=== PATIENT | female | born 1995 | race Caucasian/White ===

== ENCOUNTER 2020-06-16 10:58 | Outpatient (CLI) | payer BC, SELFPAY ==
--- NOTE | ~2020-06-16 | US_ITS ---
EXAMINATION: US abdomen complete EXAM DATE: 06/16/2020 11:24 INDICATION: R10.9 - Unspecified abdominal pain . TECHNIQUE: Multiple grayscale and Doppler images of the complete abdomen were obtained (by a technolo gist who performed the scan) and subsequently reviewed. Comparison is made to prior examination from 03/17/2014. FINDINGS: The abdominal aorta is normal in caliber. Visualized portion IVC is patent. The pancreatic head a nd body are normal in appearance. The pancreatic tail is not visualized. The liver is poorly evaluated, poor acoustic window. Suspect echogenic parenchyma as well, hepatic st eatosis. Portal venous flow was seen in the hepatopedal, normal direction and has normal Doppler wa veform. Common bile duct measures 4 mm, which is normal. The gallbladder wall is normal in thickness, with ex pected amount of distention. No sonographic evidence of pericholecystic fluid. There is cholelithia sis. Technologist performing exam reports patient did not demonstrate sonographic Mancilla's sign. P jojo note that this sign is less reliable in patients who have received pain medication. Right kidney: There is normal contour and echogenicity. It measures 10.4 x 3.6 x 4.2 centimeters. There are no focal renal lesions identified. There is no hydronephrosis. Left kidney: There is normal contour and echogenicity. It measures 9.6 x 4.5 x 5.3 centimeters. Th ere are no focal renal lesions identified. There is no hydronephrosis. The spleen measures 10.6 centimeters and is morphologically normal. IMPRESSION: Hepatic steatosis. Cholelithiasis. Reviewed, dictated and finalized at location A. NCIAL SALES CONSULTANT
== END 2020-06-16 10:59 ==
PROVIDERS: PCP Family Medicine; Visit Provider Family Medicine
DX: R10.9 Unspecified abdominal pain (principal); K76.0 Fatty (change of) liver, not elsewhere classified; K80.20 Calculus of gallbladder without cholecystitis without obstruction
CPT/HCPCS: 76700

== ENCOUNTER 2020-06-24 00:41 | Outpatient (CLI) | payer BC, SELFPAY ==
[2020-06-24 19:17] LABS: SARS-CoV-2 RNA PCR Negative
== END 2020-06-24 00:42 | disposition home or self-care (01) ==
LOC: ANHCOVIDDT 00:41
PROVIDERS: Family Provider Family Medicine; PCP Family Medicine; Visit Provider Surgery
DX: Z01.812 Encounter for preprocedural laboratory examination (principal); Z20.822 Contact with and (suspected) exposure to COVID-19
CPT/HCPCS: C9803; U0003; U0005

== ENCOUNTER 2020-06-24 08:44 | Outpatient (CLI) | payer BC, SELFPAY ==
[2020-06-24 09:28] LABS: Alanine Aminotransferase 26 U/L (4-35); Albumin Level 4.1 g/dL (3.5-5.1); Alkaline Phosphatase 93 U/L (38-126); Amylase 72 U/L (30-110); Aspartate Amino Transferase 28 U/L (14-36); Bilirubin,Total 0.4 mg/dL (0.2-1.3); Lipase 61 U/L (23-300)
== END 2020-06-24 08:45 | disposition home or self-care (01) ==
LOC: ANHSURGERY 08:46
PROVIDERS: Family Provider Family Medicine; PCP Family Medicine; Visit Provider Surgery
DX: Z01.818 Encounter for other preprocedural examination (principal); K80.20 Calculus of gallbladder without cholecystitis without obstruction
CPT/HCPCS: 36415; 80076; 82150; 83690; 86850; 86900; 86901

== ENCOUNTER 2020-06-27 01:36 | Day surgery (SDC) | payer BC, SELFPAY ==
[2020-06-21 16:53] VITALS: BMI 47.9
[2020-06-27] VITALS (10 sets, daily range): BP systolic 112–144; BP diastolic 78–99; PULSE 57–87; RESP 14–20; TEMP 36.4–37.1; O2SAT 96–100
[2020-06-27] MEDS: ACETAMINOPHEN 500 MG TABLET 1000 MG PO ×2 (11:28→11:45)
[2020-06-27] MEDS: LACTATED RINGERS 1,000 ML 30 ML IV CONT ×2 (11:38→15:09)
[2020-06-27] MEDS: KETOROLAC 15 MG/ML VIAL (*BKC) IV PUSH ×2 (11:39→11:45)
--- NOTE | 2020-06-27 11:55 | WPDANESEPPF ---
Anes - Initial Pre Proc Eval Procedure: Operation Date: 06/27/20 13:15 Proposed Procedures p Laparoscopic Cholecystectomy, Possible Open - Allen Rivera DO Date/Time: 06/27/20 11:55 Surgeon: Allen Rivera DO Pre Op Diagnosis: Symptomatic cholelithiasis Patient Data Age: 25 Gender: F Height: 5 ft 7 in Weight: 138.8 kg Allergies Allergy/AdvReac Type Severity Reaction Status Date / Time No Known Allergies Allergy Mild Verified 06/21/20 09:29 Home Medications Medication Instructions Recorded Confirmed Type omeprazole 10 mg capsule,delayed 10 mg PO DAILY 06/17/20 06/23/20 History release Patient hx anesthesia problems: none Family hx anesthesia problems: none PMFSH Past Medical History Medical History Asthma Headache, migraine History of PCOS Surgical History Surgical History Hx of tonsillectomy Family History Family History Father Alcoholism Liver disease Mother Hypertension Sibling Asthma Heart disease Clotting disorder Grandparent Diabetes mellitus Other Family history of alcoholism Family history of cardiovascular disease Social History Social History Smoking status: Never smoker Second hand tobacco smoke exposure: Yes Alcohol intake: never Substance use: never Substance use type: does not use Living arrangements: with family 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 Gender identity (if verbalized by the patient): Female Spiritual care concerns: No Agree to blood products: Yes Anes - Eval Final PreProcedure Day of Procedure 06/27/20 11:55 Patient weight: morbidly obese Heart: regular rate and rhythm Lungs: clear to auscultation Airway: Mallampati scale class II Neurological: alert and oriented Last oral intake: >/= 8 hours ASA classification: III Emergent: no Anesthetic plan: proceed Anesthesia type and monitoring: general ETT and standard monitoring Informed Consent: The patient's anesthetic plan and its attendant risks and benefits were discussed with the patient/family/POA. Questions were solicited and answers provided to the satisfaction of the patient/family/POA.
[2020-06-27] MEDS: SCOPOLAMINE 1.5 MG PATCH TRANSDERM (12:32)
--- NOTE | 2020-06-27 12:33 | WPDHPUPDATE1 ---
History and Physical Update Update Date/Time: 06/27/20 12:33 History and Physical has been reviewed, including an updated exam of the patient. There are NO changes in the patient's condition. Risks, benefits, and alternatives have been discussed and questions answered. Patient agrees to proceed with procedure.
[2020-06-27] MEDS: HEPARIN SODIUM 5,000 UNITS/ML VIAL 5000 UNITS SUB-Q (13:02)
[2020-06-27] MEDS: ceFAZolin 3 GM/D5W 100 ML 100 ML IVPB (13:05)
[2020-06-27] MEDS: BUPIVACAINE HCL 0.5% PF 30 ML VIAL INFILTRATE (13:32)
[2020-06-27] MEDS: fentaNYL CITRATE INJ (*CRX) 100 MCG/2 ML VIAL 25 MCG IV PUSH ×6 (14:05→15:06)
--- NOTE | 2020-06-27 14:06 | PM.PROC ---
Procedure Note - Detailed Date of procedure: 06/27/20 Pre-op diagnosis: Symptomatic cholelithiasis Post-op diagnosis: same Procedure performed: Laparoscopic Cholecystectomy Description of procedure: Procedure as well as risks, benefits, and alternatives were discussed with patient. Written consent was obtained and placed in chart prior to procedure. The patient was brought back to surgical suite. Patient was placed in supine position on operating table. Time-out was done to confirm patient and procedure. Patient was then intubated by the anesthesia department. Abdomen was prepped and draped in sterile fashion using chlorhexidine prep. 0.5% bupivacaine with epinephrine was infiltrated at each site of incision. A 5 millimeter incision was made near the umbilicus, and a 5 millimeter Optiview trocar was advanced through the abdominal layers under direct visualization. Once inside the abdominal cavity, carbon dioxide was insufflated to create a pneumoperitoneum. The camera was inserted and the abdomen was inspected. No immediate abnormalities were identified. The patient was placed in reverse Trendelenburg position and rotated slightly to the left. An 11 millimeter incision was made in the subxiphoid region, and an 11 millimeter trocar was inserted under direct visualization. Two 5 millimeter incisions were made in the right upper quadrant, and two 5 millimeter trocars were inserted under direct visualization. The gallbladder was identified and grasped at the fundus and retracted superiorly. It was then grasped at the infundibulum retracted laterally. Careful dissection around the neck of the gallbladder was performed using blunt dissection with a [place] grasper and hook electrocautery. The cystic duct was identified, and a window was created behind it. The cystic artery was also identified and a window was created behind it. The critical view of safety was identified, visualizing the cystic duct running directly into the neck of the gallbladder, and the cystic artery running directly into the wall of the gallbladder. A 5 millimeter clip diploma medical assistant was then used to place 2 clips proximally and 1 clip distally on both the cystic duct and cystic artery. They were then both transected using endoscopic scissors. Once safely away from the suzanne hepatitis, the gallbladder was dissected free from the liver bed using hook electrocautery. Hemostasis was achieved along the way. The gallbladder was removed completely and then removed through the subxiphoid port. The liver bed was then inspected. Hemostasis appeared adequate, and our clips appeared secure. The area was gently irrigated with sterile saline. No other abnormalities were seen. The patient was flattened out in bed, and 1 final inspection was made around the abdominal cavity. The subxiphoid port was removed, and a Kali Yvette cone was used to approximate the fascia with an 0-Vicryl simple interrupted suture. The remaining ports were then removed under direct visualization, the camera was removed, and the pneumoperitoneum was released. The skin of the incisions was approximated using 4-0 Monocryl subcuticular sutures. Exofin glue was applied on top. The patient was then awakened from anesthesia, extubated, and transferred to recovery. Anesthesia: GETA and local (0.5% bupivicaine with epi) Surgeon: Allen Rivera DO Estimated blood loss (mL): 10 Drains: No Packing: No Pathology: yes Complications: No immediate complications Condition: stable (Patient tolerated procedure well, and is currently resting comfortably in recovery.) Disposition: same day Findings: This is a 25-year-old woman who presented right upper quadrant abdominal pain for the past month. She was seen by her PCP couple weeks ago and gallbladder imaging was ordered. Ultrasound showed evidence of cholelithiasis without acute cholecystitis. Discussions were made with the patient about her treatment options and decision was made t
[2020-06-27] MEDS: ONDANSETRON INJ 4 MG/2 ML VIAL IV PUSH (14:32)
[2020-06-27] MEDS: oxyCODONE HCL (*CRX) 5 MG TAB IR PO (15:43)
== END 2020-06-27 16:40 | disposition home or self-care (01) ==
PROVIDERS: Family Provider Family Medicine; PCP Family Medicine; Visit Provider Surgery
PROC: 0FT44ZZ Resection of Gallbladder, Percutaneous Endoscopic Approach (ICD-10-PCS; CPT 47562; principal; 2020-06-27 13:15)
DX: K80.10 Calculus of gallbladder with chronic cholecystitis without obstruction (principal); E66.01 Morbid (severe) obesity due to excess calories; Z68.42 Body mass index [BMI] 45.0-49.9, adult
CPT/HCPCS: 47562; 88304; A9270; J0690; J1100; J1644; J1885; J2250; J2405; J2704; J2710; J3010; J7030; J7120

== ENCOUNTER 2020-07-18 12:11 | Outpatient (CLI) | payer BC, SELFPAY ==
--- NOTE | ~2020-07-18 | XR_ITS ---
XR chest 2V DATE: 07/18/2020 12:33 INDICATION: Dyspnea, tachycardia TECHNIQUE: PA and lateral views COMPARISON: 03/14/2009 two-view chest FINDINGS: Normal heart size. No hilar or mediastinal enlargement. No pulmonary infiltrate or consolid ation, pleural effusion or pulmonary vascular congestion or pneumothorax. Status post cholecystectomy. IMPRESSION: No active cardiopulmonary disease Reviewed, dictated and finalized at location A. USEMENT RIDE INSPECTOR
[2020-07-18 12:58] LABS: D Dimer 0.48 ug/mL (<0.48)
[2020-07-18 13:00] LABS: Alanine Aminotransferase 27 U/L (4-35); Albumin Level 4.4 g/dL (3.5-5.1); Alkaline Phosphatase 96 U/L (38-126); Anion Gap 6 mmol/L (8-16); Aspartate Amino Transferase 23 U/L (14-36); Bilirubin,Total 0.3 mg/dL (0.2-1.3); Blood Urea Nitrogen 16 mg/dL (7-17); Calcium 9.1 mg/dL (8.4-10.2); Carbon Dioxide 27 mmol/L (22-30); Chloride 106 mmol/L (98-107); Estimated Glomerular Filt Rate > 60; Glucose 91 mg/dL (65-105); Magnesium 1.8 mg/dL (1.6-2.3); Potassium 3.8 mmol/L (3.4-5.0); Sodium 139 mmol/L (137-145)
[2020-07-18 13:29] LABS: Thyroid Stimulating Hormone 0.877 uIU/mL (0.465-4.680)
[2020-07-21 13:38] LABS: Homocysteine 10.6 umol/L (<10.4)
== END 2020-07-18 12:12 | disposition home or self-care (01) ==
PROVIDERS: PCP Family Medicine; Visit Provider Family Medicine
DX: R00.2 Palpitations (principal); R06.00 Dyspnea, unspecified; Z83.2 Family history of diseases of the blood and blood-forming organs and certain disorders involving the immune mechanism
CPT/HCPCS: 36415; 71046; 80053; 83090; 83735; 84443; 85380

== ENCOUNTER 2020-07-25 10:15 | Outpatient (CLI) | payer BC, SELFPAY ==
--- NOTE | 2020-07-27 16:04 | WPDHOLTEREM ---
Holter/Event Monitor Holter/Event Monitor Date of procedure: 07/25/20 Procedure Type: 24 hour Holter monitor Diagnosis: palpitation Indications: young female with palpitations Image/Tracing Quality: good Finding: The patient was monitored for 24 hours. The underlying rhythm was sinus with a minimum heart rate of 58 beats per minute, average heart rate of 89 beats minute and maximum heart rate of 148 beats per minute. She there were 2 PACs and no PVCs. There is no atrial fibrillation, SVT, ventricular tachycardia, heart block or pauses. The patient had 1 symptom that of chest pain at 1344 p.m.. She was in sinus rhythm rate 84 beats per minute. Conclusion: Unremarkable Holter monitor. Patient's symptom of chest pain correlated with normal sinus rhythm.
== END 2020-07-25 10:16 | disposition home or self-care (01) ==
PROVIDERS: PCP Family Medicine; Visit Provider Family Medicine
DX: R00.2 Palpitations (principal)
CPT/HCPCS: 93225; 93226

== ENCOUNTER 2020-07-25 13:45 | Outpatient (CLI) | payer BC, SELFPAY ==
--- NOTE | ~2020-07-25 | US_ITS ---
EXAMINATION: US venous doppler [facility] DATE: 07/25/2020 14:29 INDICATION: Dyspnea. TECHNIQUE: Grayscale ultrasound images without and with compression and Doppler ultrasound images of the bilateral lower extremity veins were obtained. COMPARISON: None. FINDINGS: The visualized portions of right common femoral vein, profunda (deep) femoral vein, femoral vein, pop liteal vein, peroneal veins, posterior tibial veins, and greater saphenous vein outflow are patent. The visualized portions of left common femoral vein, profunda femoral vein, femoral vein, popliteal v ein, posterior tibial veins, and greater saphenous vein outflow are patent. The left peroneal veins a re not well visualized. IMPRESSION: 1. No deep venous thrombosis. Reviewed, dictated and finalized at location A. AIR LAND OFFICER
== END 2020-07-25 13:46 | disposition home or self-care (01) ==
PROVIDERS: PCP Family Medicine; Visit Provider Internal Medicine Cardiovascular Disease
DX: R06.00 Dyspnea, unspecified (principal)
CPT/HCPCS: 93970

== ENCOUNTER 2023-01-20 15:39 | Observation (INO) | payer OTHER, SELFPAY ==
--- NOTE | 2023-01-20 15:44 | ADMGEN ---
This patient, Francine Arndt, was admitted to IMU Room 200-01. Patient/family oriented to hospital policies and general routines including ID bracelet, bed and alarms, visiting hours, pain management, procedures, bathroom and other care routines, personal items, smoking policy, room service/diet, and visiting hours. Information on how to activate the Rapid Response Team has been discussed. Patient/Family are encouraged to report perceived risks to care and to ask questions if they do not understand what they are told or what they should do.
[2023-01-20 16:00] VITALS: BP 120/71; PULSE 72; RESP 16; TEMP 36.7; O2SAT 100; BMI 38.7
--- NOTE | 2023-01-20 16:13 | ECG_ITS ---
Measurements Intervals [place] Rate: 64 P: 14 SC: 131 QRS: 14 QRSD: 101 T: 7 QT: 411 QTc: 424 Interpretive Statements SINUS RHYTHM WITH SINUS ARRHYTHMIA NONSPECIFIC T-WAVE ABNORMALITY ABNORMAL ECG NO PREVIOUS ECG AVAILABLE FOR COMPARISON Electronically Signed On 01-21-2023 11:58:25 CDT by Zack Mathews M.D.
[2023-01-20 18:00] VITALS: PULSE 96
[2023-01-20] MEDS: ACETAMINOPHEN 325 MG TABLET 650 MG PO (18:08)
[2023-01-20 18:45] LABS: Troponin I < 0.012 ng/mL (0.000-0.034)
[2023-01-20 20:00] VITALS: BP 120/66; PULSE 59; PULSE 67; PULSE 96; RESP 16; RESP 20; TEMP 36.6; O2SAT 100
[2023-01-20 22:00] VITALS: PULSE 66
[2023-01-20 23:28] VITALS: BP 115/45; PULSE 67; RESP 18; TEMP 36.7; O2SAT 100
[2023-01-21] VITALS (9 sets, daily range): BP systolic 111–129; BP diastolic 56–73; PULSE 49–105; RESP 16–18; TEMP 36.4–36.7; O2SAT 100
--- NOTE | 2023-01-21 | ECHO_ITS ---
Patient Info Name: Francine Arndt Age: 27 years : 1995 Gender: Female Ht: 67 in Wt: 247 lbs BSA: 2.35 m2 HR: 59 bpm BP: 124 / 73 mmHg Heart Rhythm: Sinus Rhythm Technical Quality: Good Exam Date: 01/21/2023 10:24 AM Exam Location: [facility] Pulmonary Patient Status: Outpatient Admit Date: 01/20/2023 Staff Ordering Physician: Zack Mathews MD Attorney: Betsey Rosales RDCS Attending Provider: Kat Dykes MD Referring Physician: Bisi WELLS; Exam Type: CA echo doppler color flow Study Info Indications R07.9 - Chest pain, unspecified Complete two-dimensional, color flow and Doppler transthoracic echocardiogram is performed. Summary 1. Complete two-dimensional, color flow and Doppler transthoracic echocardiogram is performed. 2. Left ventricular chamber dimension is normal. 3. Left ventricular systolic function is normal, estimated at 60-65%. 4. There is no increased left ventricular wall thickness. 5. The left ventricular diastolic function is normal. 6. Left atrial chamber dimension is mildly enlarged. 7. There is mild tricuspid valve regurgitation. Left Ventricle Left ventricular chamber dimension is normal. Left ventricular systolic function is normal, estimated at 60-65%. There is no increased left ventricular wall thickness. The left ventricular diastolic function is normal. Right Ventricle Right ventricular chamber dimension is normal. Right ventricular systolic function is normal. Left Atria Left atrial chamber dimension is mildly enlarged. Right Atria Right atrial chamber dimension is normal. Atrial Septum Intact interatrial septum visualized by color flow imaging. Aortic Valve The aortic valve is probable trileaflet. There is mild aortic valve sclerosis. There is no aortic valve stenosis. There is trace aortic valve regurgitation. Pulmonic Valve The pulmonic valve is normal. There is no pulmonic valve stenosis. There is trace pulmonic regurgitation. Mitral Valve The mitral valve has normal leaflets. There is no mitral valve stenosis. There is trace mitral valve regurgitation. Tricuspid Valve The tricuspid valve leaflets are normal. There is no significant tricuspid valve stenosis. There is mild tricuspid valve regurgitation. No pulmonary hypertension, estimated pulmonary arterial systolic pressure is 31 mmHg. Pericardium/Pleural The pericardium appears normal. Inferior Vena Cava Normal inferior vena cava with >50% collapse upon inspiration consistent with normal right atrial pressure, 10 mmHg. Aorta The aortic root size at the sinus of Valsalva is normal. Left Ventricular Outflow Tract Name Value Normal LVOT 2D LVOT Diameter 2.0 cm LVOT Doppler LVOT Peak Gradient 4 mmHg LVOT Mean Gradient 2 mmHg LVOT VTI 25 cm LVOT VTI/AV VTI Ratio 0.9 LVOT Stroke Volume 77 ml LVOT CO 4.3 l/min LVOT CI 1.8 l/min/m2 Pulmonic Valve Name
--- NOTE | 2023-01-21 | EST_ITS ---
Patient Info Name: Francine Arndt Age: 27 years : 1995 Gender: Female Ht: 67 in Wt: 247 lbs BSA: 2.35 m2 HR: 57 bpm Technical Quality: Good Exam Date: 01/21/2023 11:19 AM Exam Location: [facility] Pul[facility] Patient Status: Inpatient Admit Date: 01/20/2023 Staff Ordering Physician: Kat Dykes MD Focuser: Betsey Rosales RDCS, RT Attending Provider: aKt Dykes MD Referring Physician: Jania LLOYD; Exercise Technologist: Nereyda Sheets CT Nurse: CLIFF NAVARRO NP Exam Type: CA stress echo Study Info Treadmill exercise stress echocardiogram is performed. Summary 1. Stress echocardiogram is normal. Stress Echo Findings Left Ventricle Normal left venticular systolic function with no regional wall motion abnormalities noted at rest. No regional wall motion abnormalities noted post stress. Overall global left ventricular systolic function Improved post stress. Normal augmentation of all wall segments without evidence of ischemia with stress. Protocol: Giovanni Stress ECG Details Stage: REST Duration (min): 3 min : 47 sec Speed (mph): 0.0 Grade (%): 0 HR (bpm): 57 SBP (mmHg): 100 DBP (mmHg): 50 METS: --- Stage: REST Duration (min): 11 min : 16 sec Speed (mph): 0.0 Grade (%): 0 HR (bpm): 67 SBP (mmHg): 100 DBP (mmHg): 50 METS: --- Stage: STAGE 1 Duration (min): 1 min : 0 sec Speed (mph): 1.7 Grade (%): 10 HR (bpm): 101 SBP (mmHg): 100 DBP (mmHg): 50 METS: --- Stage: STAGE 1 Duration (min): 2 min : 0 sec Speed (mph): 1.7 Grade (%): 10 HR (bpm): 105 SBP (mmHg): 100 DBP (mmHg): 50 METS: --- Stage: STAGE 1 Duration (min): 3 min : 0 sec Speed (mph): 1.7 Grade (%): 10 HR (bpm): 111 SBP (mmHg): 127 DBP (mmHg): 55 METS: --- Stage: STAGE 2 Duration (min): 1 min : 0 sec Speed (mph): 2.5 Grade (%): 12 HR (bpm): 120 SBP (mmHg): 127 DBP (mmHg): 55 METS: --- Stage: STAGE 2 Duration (min): 2 min : 0 sec Speed (mph): 2.5 Grade (%): 12 HR (bpm): 130 SBP (mmHg): 134 DBP (mmHg): 46 METS: --- Stage: STAGE 2 Duration (min): 3 min : 0 sec Speed (mph): 2.5 Grade (%): 12 HR (bpm): 133 SBP (mmHg): 134 DBP (mmHg): 46 METS: --- Stage: STAGE 3 Duration (min): 1 min : 0 sec Speed (mph): 3.4 Grade (%): 14 HR (bpm): 166 SBP (mmHg): 113 DBP (mmHg): 77 METS: --- Stage: STAGE 3 Duration (min): 1 min : 33 sec Speed (mph): 0.0 Grade (%): 0 HR (bpm): 165 SBP (mmHg): 161 DBP (mmHg): 87 METS: --- Stage: RECOVERY Duration (min): 0 min : 27 sec Speed (mph): 0.0 Grade (%): 0 HR (bpm): 130 SBP (mmHg): 161 DBP (mmHg): 87 METS: --- Stage: RECOVERY Duration (min): 1 min : 27 sec Speed (mph): 0.0 Grade (%): 0 HR (bpm): 98 SBP (mmHg): 161 DBP (mmHg): 87 METS: --- Stage: RECOVERY Duration (min): 2 min : 27 sec Speed (mph): 0.0 Grade (%): 0 HR (
--- NOTE | 2023-01-21 09:10 | PM.IMHP ---
H&P: HPI History of Present Illness Date/Time: 01/21/23 09:10 Chief Complaint: Chest pain Narrative: Date of service 01/21/2023 Reason for admission: Chest pain History: Patient is a 27-year-old female who has formally seen Dr. Margaret koehler for tachycardia. 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 Gastric sleeve was approximately 1 year ago. She woke up yesterday at about 630 minutes morning with chest pain. She described as a heavy pain with associated shortness of breath. She does state that it was worsened by breathing although this differs from documentation the ER from [place]. She was also nauseated and her symptoms went into her back. Her symptoms waxed and waned for the next several hours but were constantly there. At approximately 11:00 a.m. there were in the emergency department at [place]. She was given IV fluids as well as a nitroglycerin tablet. Nitroglycerin reportedly did help her symptoms. She has had no recent exertional chest pain. She was therefore transferred to this facility for further workup and evaluation. She does have some random episodes of dizziness which she describes the room spinning. She denies any palpitations, unusual shortness of breath besides that mentioned aforementioned. No paroxysmal nocturnal dyspnea, orthopnea, syncope. She has a brother who has hyper homocystinemia who reportedly has had a previous myocardial infarction at the age of 29. She herself is ?borderline ? Review of Systems Review of Systems: All systems reviewed & are unremarkable except as noted in HPI and below Constitutional: Constitutional: Denies body ache(s) Eyes: Eyes: Denies blurry vision ENT: Reports Normal hearing present Cardiovascular: Cardiovascular: Reports chest pain Respiratory: Respiratory: Denies no additional respiratory complaints Gastrointestinal: Gastrointestinal: Denies abdominal pain Genitourinary: Genitourinary: Denies hematuria Musculoskeletal: Musculoskeletal: Reports back pain Integumentary/Breasts: Skin/Breast: Denies breast pain Neurologic: Denies Abnormal speech present Psychiatric: Psychiatric: Denies anxiety Endocrine: Endocrine: Denies change in body appearance Hematologic/Lymphatic: Hematologic/Lymphatic: Denies easy bleeding Allergic/Immunologic: Allergic/Immunologic: Denies GI upset with certain foods PMFSH Past Medical History Medical History (Updated 01/21/23 @ 09:20 by Zack Mathews MD) Asthma Establishing care with new doctor, encounter for Headache, migraine History of PCOS Palpitations Physical exam Surgical History Surgical History (Updated 01/21/23 @ 09:20 by Zack Mathews MD) H/O gastric sleeve Hx laparoscopic cholecystectomy 06/27/20 Hx of tonsillectomy Family History Family History Father Alcoholism Liver disease Mother Hypertension Sibling Asthma Heart disease Clotting disorder Grandparent Diabetes mellitus Other Family history of alcoholism Family history of cardiovascular disease Social History Social History Smoking status: Never smoker Second hand tobacco smoke exposure: Yes Alcohol intake: never Substance use: never Substance use type: does not use Lack of Transportation: No Lack of Food: Never True Current Housing: I Have Housing Concerned About Future Housing: No Difficulty Paying Gas/Electric Bills: No Difficulty Paying for Meds: No Currently Unemployed: No Education: Master's Degree or Higher Difficulty w/ Childcare or Family Care: No Living arrangements: with family Occupation/Education: occupation 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
[2023-01-21 10:00] LABS: Troponin I < 0.012 ng/mL (0.000-0.034)
--- NOTE | 2023-01-21 11:33 | PC.NURSE ---
Pt to stress lab for cardiac stress test.
--- NOTE | 2023-01-21 12:10 | PC.NURSE ---
Pt returned from stress test via wheelchair. No issues noted
[2023-01-21] MEDS: ACETAMINOPHEN 325 MG TABLET 650 MG PO (12:43)
--- NOTE | 2023-01-21 16:07 | PM.DS ---
DS: Admitting Diagnosis Discharge Date 01/21/2023 Admitting Diagnosis chest pain DS: Discharge Diagnosis Discharge Diagnosis (1) Chest pain: Code(s): R07.9 - Chest pain, unspecified Status: Acute Assessment and Plan: Chest pain was relieved with nitroglycerin but otherwise she has few risk factors coronary disease. She is young and she had unremitting pain for several hours. Despite this, she had no EKG changes and no troponin leak. Obviously nitroglycerin may relieve other symptoms also including GI related pain. There is age family history of hyper homocystinemia but this would present typically as an acute thrombus with resultant ST segment changes which she does not have. D-dimer was also negative in [place] which makes pulmonary embolism much less likely. 2D echo with doppler unremarkable - normal LVSF, no significant valvular abnormalities. Stress echo performed today was also normal. (2) H/O gastric sleeve: Code(s): Z90.3 - Acquired absence of stomach [part of] Status: Acute Assessment and Plan: Performed at [facility] DS: Summary Hospital Course Hospital Course: Transferred from [facility] with a chief complaint of chest pain. Underwent exercise stress echo and 2D echo with Doppler which was negative. Echocardiogram showed normal LVSF with no significant valvular abnormalities. Has not had any recurrence of chest pain since admission. Feeling well and is eager to be discharged. Time Spent with Patient Time attestation: Total time spent providing and/or coordinating discharge services: Exam Narrative: Awake alert oriented. Appears stated age Const: General: comfortable and no acute distress HENMT: Face/Nose/Sinus: Normal nares present Mouth: Yes moist mucous membranes Eyes: General: appearance normal, both eyes and all related structures Sclera: sclerae normal Neck: Neck: supple and no JVD Carotids: no bruits Chest: Other: No reproducible chest wall pain to palpation Resp: Effort & Inspection: normal respiratory effort Auscultation: clear to auscultation bilaterally Cardio: Rate: regular rate Rhythm: regular rhythm Heart sounds: no murmurs GI: Inspection: non-distended Skin: General skin exam: normal color Neuro: Cranial nerves: Yes Normal hearing present Speech: normal speech and No Abnormal speech present Motor exam (neuro): 5/5 motor strength present throughout Sensory Exam: normal sensation Extrem: General: normal to inspection Psych: Mental Status: mental status grossly normal Affect: normal affect DS: Data Data Completed and Pending Labs on day of discharge: Labs from last 24 hours 01/21/23 01/20/23 09:34 17:41 Troponin I < 0.012 < 0.012 Discharge Plan Discharge Consulting providers: Zack Mathews; Mallory Hollis Discharging Clinician: Mallory Hollis Patient Disposition: Home, Self-Care Activity: september shower Diet: regular Patient Instructions: Chest Pain (DC), Noncardiac Chest Pain (DC), Cardiac Stress Test (GEN), Stress Echocardiogram (DC) Stand Alone Forms: General Discharge Information Follow-up/Referrals: Kat Dykes MD [Physician] - 2 Weeks Discharge Medications: Continued albuterol sulfate 90 mcg/actuation HFA aerosol inhaler 1 puff inhalation Q4H PRN (Reason: shortness of breath or wheezing) Qty: 8.5 0RF albuterol sulfate 2.5 mg /3 mL (0.083 %) solution for nebulization 2.5 mg inhalation Q4H PRN (Reason: shortness of breath or wheezing) Qty: 180 0RF Date of admission: 01/20/23 15:39 Primary Care Provider: PHYSICIAN,COUNTY HISTORIAN Admitting Provider: Kat Dykes Attending physician on admission: Kat Dykes Condition: Stable
--- NOTE | 2023-01-22 | EST_ITS ---
Patient Info Name: Francine Arndt Age: 27 years : 1995 Gender: Female Ht: 67 in Wt: 247 lbs BSA: 2.35 m2 HR: 57 bpm Technical Quality: Good Exam Date: 01/21/2023 11:19 AM Exam Location: [facility] Pulmonary Patient Status: Inpatient Admit Date: 01/20/2023 Staff Ordering Physician: Kat Dykes MD Personal Carer: Betsey Rosales RDCS, RT Attending Provider: Kat Dykes MD Referring Physician: Jania LLOYD; Exercise Technologist: Nereyda Sheets CT Nurse: CLIFF NAVARRO NP Exam Type: CA stress echo Study Info Treadmill exercise stress echocardiogram is performed. Summary 1. Stress echocardiogram is normal. Stress Echo Findings Left Ventricle Normal left venticular systolic function with no regional wall motion abnormalities noted at rest. No regional wall motion abnormalities noted post stress. Overall global left ventricular systolic function Improved post stress. Normal augmentation of all wall segments without evidence of ischemia with stress. Protocol: Giovanni Stress ECG Details Stage: REST Duration (min): 3 min : 47 sec Speed (mph): 0.0 Grade (%): 0 HR (bpm): 57 SBP (mmHg): 100 DBP (mmHg): 50 METS: --- Stage: REST Duration (min): 11 min : 16 sec Speed (mph): 0.0 Grade (%): 0 HR (bpm): 67 SBP (mmHg): 100 DBP (mmHg): 50 METS: --- Stage: STAGE 1 Duration (min): 1 min : 0 sec Speed (mph): 1.7 Grade (%): 10 HR (bpm): 101 SBP (mmHg): 100 DBP (mmHg): 50 METS: --- Stage: STAGE 1 Duration (min): 2 min : 0 sec Speed (mph): 1.7 Grade (%): 10 HR (bpm): 105 SBP (mmHg): 100 DBP (mmHg): 50 METS: --- Stage: STAGE 1 Duration (min): 3 min : 0 sec Speed (mph): 1.7 Grade (%): 10 HR (bpm): 111 SBP (mmHg): 127 DBP (mmHg): 55 METS: --- Stage: STAGE 2 Duration (min): 1 min : 0 sec Speed (mph): 2.5 Grade (%): 12 HR (bpm): 120 SBP (mmHg): 127 DBP (mmHg): 55 METS: --- Stage: STAGE 2 Duration (min): 2 min : 0 sec Speed (mph): 2.5 Grade (%): 12 HR (bpm): 130 SBP (mmHg): 134 DBP (mmHg): 46 METS: --- Stage: STAGE 2 Duration (min): 3 min : 0 sec Speed (mph): 2.5 Grade (%): 12 HR (bpm): 133 SBP (mmHg): 134 DBP (mmHg): 46 METS: --- Stage: STAGE 3 Duration (min): 1 min : 0 sec Speed (mph): 3.4 Grade (%): 14 HR (bpm): 166 SBP (mmHg): 113 DBP (mmHg): 77 METS: --- Stage: STAGE 3 Duration (min): 1 min : 33 sec Speed (mph): 0.0 Grade (%): 0 HR (bpm): 165 SBP (mmHg): 161 DBP (mmHg): 87 METS: --- Stage: RECOVERY Duration (min): 0 min : 27 sec Speed (mph): 0.0 Grade (%): 0 HR (bpm): 130 SBP (mmHg): 161 DBP (mmHg): 87 METS: --- Stage: RECOVERY Duration (min): 1 min : 27 sec Speed (mph): 0.0 Grade (%): 0 HR (bpm): 98 SBP (mmHg): 161 DBP (mmHg): 87 METS: --- Stage: RECOVERY Duration (min): 2 min : 27 sec Speed (mph): 0.0 Grade (%): 0 HR (
== END 2023-01-21 16:56 | disposition home or self-care (01) ==
PROVIDERS: Internal Medicine Cardiovascular Disease; Admitting Provider Internal Medicine Cardiovascular Disease; Visit Provider Internal Medicine Cardiovascular Disease
DX: R07.9 Chest pain, unspecified (principal); Z98.84 Bariatric surgery status; R42 Dizziness and giddiness; R00.0 Tachycardia, unspecified; R06.02 Shortness of breath; R11.0 Nausea; I08.2 Rheumatic disorders of both aortic and tricuspid valves; R94.31 Abnormal electrocardiogram [ECG] [EKG]; G43.909 Migraine, unspecified, not intractable, without status migrainosus; J45.909 Unspecified asthma, uncomplicated; Z82.5 Family history of asthma and other chronic lower respiratory diseases; Z79.51 Long term (current) use of inhaled steroids
CPT/HCPCS: 36415; 84484; 93005; 93306; 93351; A9270; G0378; G0379

== ENCOUNTER 2023-01-23 16:28 | Emergency (ER) | payer OTHER, SELFPAY ==
--- NOTE | ~2023-01-23 | XR_ITS ---
EXAMINATION: XR chest 2V Exam Date/Time: 01/23/2023 18:15 CDT HISTORY: pre-syncope Comparison: 07/18/2020. RESULT: Lines, tubes, and devices: Cholecystectomy clips. Lungs and pleura: Clear. Cardiomediastinal silhouette: Stable. Other: No acute osseous or upper abdominal finding. IMPRESSION: No acute cardiopulmonary process. Reviewed, dictated and finalized at location K.
[2023-01-23 16:39] VITALS: BP 153/88; PULSE 77; RESP 16; TEMP 36.2; O2SAT 100
--- NOTE | 2023-01-23 17:23 | ECG_ITS ---
Measurements Intervals Calvin Rate: 64 P: 14 VA: 129 QRS: 20 QRSD: 92 T: 11 QT: 381 QTc: 396 Interpretive Statements SINUS RHYTHM NORMAL ECG COMPARED TO ECG 01/20/2023 17:14:50 NO SIGNIFICANT CHANGES Electronically Signed On 01-24-2023 9:43:47 CDT by Zack Mathews M.D.
--- NOTE | 2023-01-23 17:25 | ED.DIZZY ---
HPI - Dizziness General Chief Complaint: Syncope Stated Complaint: dizzy/sob Time Seen by Provider: 01/23/23 16:56 History of Present Illness HPI Narrative: 27-year-old female with a history of gastric sleeve in 2020, cholecystectomy, and hyperprolactinemia reports for evaluation for lightheadedness since today. Patient states around 1230 today, she was [place] a court house and began to feel lightheaded with blurry vision after she stood up. States she had to brace herself on a table next to her but did not pass out. She reported associated shortness of breath and chest tightness at that time lasting minutes and at times radiates to her right shoulder and back. She states that her friends then drove her home. At home, she drink Gatorade and lay down. States the lightheadedness improves when she sits still or lies down and closes her eyes. She reports feeling foggy since the onset of symptoms. She states at times she describes the sensation as lightheadedness and other times she feels like the room is spinning. Currently, she states she is not having chest tightness or shortness of breath, but just feels off. She denies fever, body aches or chills, abdominal pain, vomiting, lower extremity edema, syncope, palpitations, cough or congestion, dysuria or hematuria. Denies recent head injury, focal numbness or weakness, drug or alcohol use. She does report having 2 episodes of diarrhea yesterday. She was discharged from [facility] yesterday after a cardiac work-up for chest pain that improved with nitroglycerin. On admission she was found to have a normal stress echo. The echocardiogram on 01/21/2023 summary is as follows: Summary ? 1. Complete two-dimensional, color flow and Doppler transthoracic echocardiogram is performed. ? 2. Left ventricular chamber dimension is normal. ? 3. Left ventricular systolic function is normal, estimated at 60-65%. ? 4. There is no increased left ventricular wall thickness. ? 5. The left ventricular diastolic function is normal. ? 6. Left atrial chamber dimension is mildly enlarged. ? 7. There is mild tricuspid valve regurgitation. Related Data Allergies Allergy/AdvReac Type Severity Reaction Status Date / Time No Known Allergies Allergy Mild Verified 04/18/22 15:34 Review of Systems Review of Systems: CONSTITUTIONAL: Denies fever, chills EYES: See HPI ENT: Denies rhinorrhea, congestion, sore throat, or otalgia. CARDIOVASCULAR: See HPI RESPIRATORY: Denies cough or dyspnea. GASTROINTESTINAL: See HPI GENITOURINARY: Denies dysuria or hematuria. SKIN: Denies rash or itching. MUSCULOSKELETAL: Denies back pain, joint pain, or myalgia. NEUROLOGIC: See HPI PSYCHIATRIC: Denies anxiety or depression. [facility] Past Medical History Medical History Asthma Establishing care with new doctor, encounter for Headache, migraine History of PCOS Palpitations Physical exam Surgical History Surgical History H/O gastric sleeve Hx laparoscopic cholecystectomy 06/27/20 Hx of tonsillectomy Family History Family History Father Alcoholism Liver disease Mother Hypertension Sibling Asthma Heart disease Clotting disorder Grandparent Diabetes mellitus Other Family history of alcoholism Family history of cardiovascular disease Social History Social History Smoking status: Never smoker Second hand tobacco smoke exposure: Yes Alcohol intake: never Substance use: never Substance use type: does not use Lack of Transportation: No Lack of Food: Never True Current Housing: I Have Housing Concerned About Future Housing: No Difficulty Paying Gas/Electric Bills: No Difficulty Paying for Meds: No Currently Unemployed: No Education: Master's Degree o
[2023-01-23] MEDS: SODIUM CHLORIDE 0.9% IV 1,000 ML 999 ML IV CONT (18:00)
[2023-01-23 18:05] VITALS: BP 122/73; PULSE 64; RESP 14; O2SAT 100
[2023-01-23 18:13] LABS: Basophils Absolute Auto 0.1 K/mm3 (0.0-0.1); Basophils Percent Auto 0.8 % (0.2-1.2); Eosinophils Absolute Auto 0.1 K/mm3 (0-0.3); Eosinophils Percent Auto 0.7 % (0-4.4); Hematocrit 41.3 % (37.0-47.0); Hemoglobin 13.4 g/dL (12.0-15.0); Immature Granulocyte Absolute 0.02 K/mm3 (0.00-0.031); Immature Granulocyte Percent A 0.2 % (0-0.5); Lymphocytes Percent Auto 30.8 % (18.3-44.2); Mean Corpuscular HGB Conc 32.4 g/dl (32-36); Mean Corpuscular Hemoglobin 29.5 pg (26-34); Mean Platelet Volume 10.5 fl (7.4-10.4); Monocytes Absolute Auto 0.8 K/mm3 (0.1-0.6); Neutrophils Percent Auto 59.5 % (45.5-73.1); Platelet Count Result 269 k/mm3 (150-375); Red Blood Count 4.54 M/mm3 (4.2-5.4); Red Cell Distribution Width 12.5 % (11.5-14.5); White Blood Count 10.1 K/mm3 (4.5-10.0)
[2023-01-23 18:27] LABS: Alanine Aminotransferase 22 U/L (6-35); Albumin Level 4.5 g/dL (3.5-5.1); Alkaline Phosphatase 79 U/L (38-126); Anion Gap 7 mmol/L (8-16); Aspartate Amino Transferase 28 U/L (14-36); Bilirubin,Total 0.4 mg/dL (0.2-1.3); Blood Urea Nitrogen 21 mg/dL (7-17); Carbon Dioxide 25 mmol/L (22-30); Chloride 106 mmol/L (98-107); Estimated CRCL calculation 132 ml/min; Estimated Glomerular Filt Rate > 60; Glucose 91 mg/dL (65-110); Potassium 4.2 mmol/L (3.4-5.0); Sodium 138 mmol/L (137-145)
[2023-01-23 18:38] LABS: Troponin I < 0.012 ng/mL (0.000-0.034)
== END 2023-01-23 20:45 | disposition home or self-care (01) ==
PROVIDERS: Emergency Provider Physician Assistant; PCP Family Medicine
DX: R55 Syncope and collapse (principal)
CPT/HCPCS: 36415; 71046; 80053; 81025; 84484; 85025; 93005; 96360; 96361; 99284; J7030

== ENCOUNTER 2024-07-10 14:23 | Outpatient (CLI) | payer BC, SELFPAY ==
--- NOTE | ~2024-07-10 | US_ITS ---
EXAM: PELVIC ULTRASOUND HISTORY: Pelvic pain COMPARISON: 06/22/2016. FINDINGS: UTERUS: 6.7 x 3.8 x 4.4 cm. The endometrial complex measures 11.5 mm. RIGHT OVARY: The right ovary is unremarkable in echogenicity and size measuring 2.2 x 2.2 x 3.3 cm. Dopplerable flow is identified. LEFT OVARY: The left ovary measures 3.0 x 2.0 x 2.0 cm Dopplerable flow is identified. A single anechoic avascular focus is identified within the left ovary measuring 19 x 15 x 14 mm, repr esenting a simple cyst for which no further follow-up is needed. No free fluid is identified within the pelvis. IMPRESSION: Simple cyst within the left ovary for which no further follow-up is needed. Reviewed, dictated and finalized at location A. [employer]
== END 2024-07-10 14:24 | disposition home or self-care (01) ==
PROVIDERS: PCP Clinical Nurse Specialist; Visit Provider Nurse Practitioner Women's Health
DX: N83.292 Other ovarian cyst, left side (principal)
CPT/HCPCS: 76830